=== PATIENT | male | born 1960 | race Caucasian/White ===

== ENCOUNTER 2018-03-02 10:26 | Emergency (ER) | END 2018-03-02 13:47 | disposition home or self-care (01) ==

== ENCOUNTER 2018-03-06 11:50 | Day surgery (SDC) | END 2018-03-06 14:38 | disposition home or self-care (01) ==

== ENCOUNTER 2018-04-29 12:36 | Day surgery (SDC) | END 2018-04-29 16:55 | disposition home or self-care (01) ==